=== PATIENT | female | born 2000 ===

== ENCOUNTER 2024-10-26 11:57 | Outpatient (CLI) | payer MEDICAID, SELFPAY ==
--- NOTE | 2024-10-26 | DI.US_ITS ---
Exam(s) US OB 1ST TRIMESTER EXAM: US OB 1ST TRIMESTER CLINICAL HISTORY: CARE Z34.90 DATING, ? SIZE LESS THAN DATES. COMPARISON: No exams were available for comparison TECHNIQUE: Transabdominal Transvaginal first trimester obstetrical ultrasound performed. FINDINGS: There is a gestational sac seen within the endometrial stripe, near the fundus. No free fluid identified. Pelvic Measurments Uterus: 4.2 x 9.41 cm x 6.07 cm cm Rt Ovary: Not visualized Lt Ovary: 3.2 x 2.2 x 1.4 cm Biometry CRL: 2 millimeters Yolk Sac: 3 millimeters Composite age 5 weeks 5 days EDC by US: 23 June 2025 Heart Rate: heart motion was visualized. Heart rate was not documented with Doppler due to small pole size. IMPRESSION: Single live intrauterine gestation measuring 5 weeks 5 days. DATA REPOSITORY:
--- OUTSIDE RECORDS SUMMARY | 2024-10-26 11:59 | XMS_ITS | Encounter Summary ---
Author Organization [facility] Address [address] [place] [address] Care Team Providers Care Conveyor Tender Concrete Mixing Plant Name Role Phone Unknown, Provider Primary Care Provider Hernesto ilgay Encounter Details Date Type Department Care Team (Late st Contact Info) Description 01/01/2022 Lab Requisition [facility] Pathology & Laboratory Medicine - [facility] [address] [place] [address] Outr Resulting Lab, Provider Social History Tobacco Use Types Packs/Day Years Used Date Smoking Tobacco: Never Assessed Interpersonal Safety Answer Date Record ed Physically Hurt Never 06/01/2020 Verbally Threaten Not on file 06/01/2020 Comments Unknown Sex and Gender Information Value Date Recorded Sex Assigned at Not on file Legal Sex Female 11:00 EDT Gender Identity Not on file Sexual Orientation Not on file documented as of this encounter Plan of Treatment Not on file documented as of this encounter Procedures Procedure Name Priority Date/Time Associated Diagnosis Comments CHLAMYDIA/N. GONORRHOEAE AMPLIFIED NUCLEIC ACID Routine 01/01/2022 17:00 EST documented in this encounter Results * CHLAMYDIA/N. GONORRHOEAE AMPLIFIED RNA (01/01/2022 17:00 EST) Neisseria gonorrhoeae Result Negative Negative 01/04/2022 14:13 EST [facility] Chlamydia trachomatis Result Negative Negative 01/04/2022 14:13 EST [facility] Swab ENTIRE VAGINA / Unknown 01/01/2022 17:00 EST 01/01/2022 22:36 EST us Provider Outr Resulting Lab MICROBIOLOGY - GENER AL ORDERABLES Final Result [facility] [address] [place] [address] documented in this encounter Visit Diagnoses Not on filedocumented in this encounter Care Teams Conveyor Tender Concrete Mixing Plant Relationship Specialty Start Date End Date Unknown, Provider, PCP - General 02/11/15 documented as of this encounter
--- OUTSIDE RECORDS SUMMARY | 2024-10-26 11:59 | XMS_ITS | Clinical Summary ---
Author Organization [facility] Address [address] [place] [address] Care Team Providers Care Flamer Sealer Name Role Phone Unknown, Provider Primary Care Provider Unava ilable Social History Tobacco Use Types Packs/Day Years Used Date Smoking Tobacco: Never Assessed Interpersonal Safety Answer Date Record ed Physically Hurt Never 06/01/2020 Verbally Threaten Not on file 06/01/2020 Comments Unknown Sex and Gender Information Value Date Recorded Sex Assigned at Not on file Legal Sex Female 11:00 EDT Gender Identity Not on file Sexual Orientation Not on file Plan of Treatment Health Maintenance Due Date Last Done Comments Hepatitis C Screen 1998 Hepatitis B Vaccine (1 of 3 - 19+ 3-dose series) 07/14 COVID-19 Vaccine ( season) 2024 [place] Care Teams Flamer Sealer Relationship Specialty Start Date End Date Unknown, Provider, PCP - General 02/11/15
--- OUTSIDE RECORDS SUMMARY | 2024-10-26 11:59 | XMS_ITS | Encounter Summary ---
Author Organization [facility] Address [address] [place] [address] Care Team Providers Care Inventory Control Planner Name Role Phone Unknown, Provider Primary Care Provider Unava ilable Encounter Details Date Type Department Care Team (Late st Contact Info) Description 11/26/2015 Historical Results Only [facility] Radiology Results [address] [place], [place] [id number] Roxanne Alexander, PA [address] [place] [address] Social History Tobacco Use Types Packs/Day Years Used Date Smoking Tobacco: Never Assessed Comments Unknown Sex and Gender Information Value Date Recorded Sex Assigned at Not on file Legal Sex Female 11:00 EDT Gender Identity Not on file Sexual Orientation Not on file documented as of this encounter Plan of Treatment Not on file documented as of this encounter Procedures Procedure Name Priority Date/Time Associated Diagnosis Comments US ABDOMEN LIMITED 11/26/2015 10 :57 EST documented in this encounter Results * US ABDOMEN LIMITED (11/26/2015 10:57 EST) Anatomical Region Laterality Modality Abdomen, Body Other 11/26/2015 10:5 7 EST Narrative 11/26/2015 11:01 EST ? EXAM: ULTRASOUND/RIGHT UPPER QUADRANT ? EX. D/ (0928) ? CLINICAL INFORMATION: ? R10.00 RUQ PAIN ? INDICATION: R10.00 RUQ PAIN RUQ ABDOMINAL PAIN ? TECHNIQUE: ??Sonographic examination of the right upper quadrant was ? performed. Color and spectral waveform Doppler imaging was utilized. ? COMPARISON: None ? FINDINGS: The IVC appears patent. The visualized portions of the ? pancreatic head are unremarkable. The right hepatic lobe measures ? 11cm in the craniocaudal dimension. No focal hepatic lesion is seen. ? The gallbladder wall is 2.1 mm in thickness. No gallstones are seen. ? No pericholecystic fluid is noted. The common bile duct measures ? 2.5mm in diameter. The right kidney is 10.2cm in length. No ? hydronephrosis is seen. No focal renal parenchymal abnormality is ? detected. ? IMPRESSION: ?No acute abnormality detected. ? REPORT SIGNED IN OTHER VENDOR SYSTEM 11/26/2015 ?Reported By: Marco Luciano MD ? CC: ? Transcribed Date/Time: 11/26/2015 (1101) ? Cargo Station Worker: ? Printed Date/Time: 04/11/2019 (1114) ? PAGE 1 ? Signed Report ? Procedure Note Marco Luciano MD - 09/05/2019 EXAM: ULTRASOUND/RIGHT UPPER QUADRANT EX. D/ (0928) CLINICAL INFORMATION: R10.00 RUQ PAIN INDICATION: R10.00 RUQ PAIN RUQ ABDOMINAL PAIN TECHNIQUE: Sonographic examination of the right upper quadrant was performed. Color and spectral waveform Doppler imaging wasutilized. COMPARISON: None FINDINGS: The IVC appears patent. The visualized portions of the pancreatic head are unremarkable. The right hepatic lobe measures 11cm in the craniocaudal dimension. No focal hepatic lesion isseen. The gallbladder wall is 2.1 mm in thickness. No gallstones areseen. No pericholecystic fluid is noted. The common bile duct measures 2.5mm in diameter. The right kidney is 10.2cm in length. No hydronephrosis is seen. No focal renal parenchymal abnormality is detected. IMPRESSION: No acute abnormality detected. REPORT SIGNED IN OTHER VENDOR SYSTEM 11/26/2015 Reported By: Marco Luciano MD CC: Transcribed Date/Time: 11/26/2015 (1048) Cargo Station Worker: [email or web address] Printed Date/Time: 04/11/2019 (5184) PAGE 1 Signed Report us Roxanne MANN IMG US ORDERABLES Final Result documented in this encounter Visit Diagnoses Not on filedocumented in this encounter Care Teams Inventory Control Planner Relationship Specialty Start Date End Date Unknown, Provider, PCP - General 02/11/15 documented as of this encounter
--- OUTSIDE RECORDS SUMMARY | 2024-10-26 11:59 | XMS_ITS | Encounter Summary ---
Author Organization [facility] Address [address] [place] [address] Care Team Providers Care Endless Steamer Tender Name Role Phone Unavailable Primary Care Provider Unavailabl e Encounter Details Date Type Department Care Team (Latest Contact Info) Description 02/04/2015 11:01 EDT - 02/04/2015 23:59 EDT Hospital Encounter [facility] [address] [place] [address] Unknown, Provider, MD Discharge Disposition: Home or Self Care Social History Tobacco Use Types Packs/Day Years Used Date Smoking Tobacco: Never Assessed Comments Unknown Sex and Gender Information Value Date Recorded Sex Assigned at Not on file Legal Sex Female 11:00 EDT Gender Identity Not on file Sexual Orientation Not on file documented as of this encounter Discharge Disposition Disposition Code Departure Means Destination Home or Self Snf documented in this encounter Plan of Treatment Not on file documented as of this encounter Visit Diagnoses Not on filedocumented in this encounter
--- OUTSIDE RECORDS SUMMARY | 2024-10-26 11:59 | XMS_ITS | Encounter Summary ---
Author Organization [facility] Address [address] [place] [address] Care Team Providers Care Shot Hole Shooter Name Role Phone Unknown, Provider Primary Care Provider Unava ilable Encounter Details Date Type Department Care Team (Late st Contact Info) Description 02/04/2015 Historical Results Only [facility] Radiology Results [address] [place] [address] Tiny Powers PA [address] [place], [place] Social History Tobacco Use Types Packs/Day Years [...] Procedure Name Priority Date/Time Associated Diagnosis Comments XR THORACIC SPINE 3 VIEWS 02/04/2015 15:57 EDT XR LUMBAR SPINE 2-3 VIEWS 02/04/2015 15:55 EDT documented in this encounter Results * XR THORACIC SPINE 3 VIEWS (02/04/2015 15:57 EDT) Anatomical Region Laterality Modality Spine Other 02/04/2015 15:5 7 EDT Narrative 02/04/2015 15:59 EDT ? EXAM: RADIOLOGY/THORACIC SPINE 3 VIEW ? EX. D/ (1446) ? CLINICAL INFORMATION: ? BACK PAIN ? INDICATION: Back pain. ? COMPARISON: None. ? TECHNIQUE: AP, lateral and lateral swimmer's views. ? FINDINGS: Intervertebral disc spaces and vertebral body heights are ? well-maintained. Bone density is normal. No fracture or subluxation ? is seen. ? IMPRESSION: ??Normal radiographic examination of the thoracic spine. ? REPORT SIGNED IN OTHER VENDOR SYSTEM 02/04/2015 ?Reported By: Young Bernal MD ? CC: ? Transcribed Date/Time: 02/04/2015 (2929) ? Strawhat Inspector And Packer: JAX ? Printed Date/Time: 04/03/2019 (7807) ? PAGE 1 ? Signed Report ? Procedure Note Young Bernal MD - 09/04/2019 EXAM: RADIOLOGY/THORACIC SPINE 3 VIEW EX. D/ (7279) CLINICAL INFORMATION: BACK PAIN INDICATION: Back pain. COMPARISON: None. TECHNIQUE: AP, lateral and lateral swimmer's views. FINDINGS: Intervertebral disc spaces and vertebral body heights are well-maintained. Bone density is normal. No fracture or subluxation is seen. IMPRESSION: Normal radiographic examination of the thoracic spine. REPORT SIGNED IN OTHER VENDOR SYSTEM 02/04/2015 Reported By: Young Bernal MD CC: Transcribed Date/Time: 02/04/2015 (4450) Strawhat Inspector And Packer: JAX Printed Date/Time: 04/03/2019 (0463) PAGE 1 Signed Report Tiny MANN IMG DIAGNOSTIC IMAGING ORDERA BLES Final Result * XR LUMBAR SPINE 2-3 VIEWS (02/04/2015 15:55 EDT) Anatomical Region Laterality Modality Other 02/04/2015 15:5 5 EDT Narrative 02/04/2015 15:58 EDT ? EXAM: RADIOLOGY/LUMBAR SPINE 2 OR 3 VIEWS EX. D/ (7266) ? CLINICAL INFORMATION: ? BACK PAIN ? INDICATION: Back pain. ? COMPARISON: None. ? TECHNIQUE: AP and lateral views. ? FINDINGS: Intervertebral disc spaces and vertebral heights are ? well-maintained. No fracture or subluxation is seen. There is a ? minimal curve of the lumbar spine, apex to the left. There is minimal ? increased density within the iliac aspects of both sacroiliac joints ? with questionable mild subchondral bone irregularity on the right. ? Findings may indicate an underlying sacroiliitis. Consider further ? assessment with MRI as clinically indicated. ? IMPRESSION: ??Possible mild sacroiliitis. Consider further assessment ? with MRI as clinically indicated. ? REPORT SIGNED IN OTHER VENDOR SYSTEM 02/04/2015 ?Reported By: Young Bernal MD ? CC: ? Transcribed Date/Time: 02/04/2015 (1808) ? Strawhat Inspector And Packer: JAX ? Printed Date/Time: 04/03/2019 (8202) ? PAGE 1 ? Signed Report ? Procedure Note Young Bernal MD - 09/04/2019 EXAM: RADIOLOGY/LUMBAR SPINE 2 OR 3 VIEWS EX. D/ (8675) CLINICAL INFORMATION: BACK PAIN INDICATION: Back pain. COMPARISON: None. TECHNIQUE: AP and lateral views. FINDINGS: Intervertebral disc spaces and vertebral heights are well-maintained. No fracture or subluxation is seen. There is a minimal curve of the lumbar spine, apex to the left. There isminimal increased density within the iliac aspects of both sacroiliacjoints with questionable mild subchondral bone irregularity on the right. Findings may indicate an underlying sacroiliitis. Consider further assessment with MRI as clinically indicated. IMPRESSION: Possible mild sacroiliitis. Consider furtherassessment with MRI as clinically indicated. REPORT SIGNED IN OTHER VENDOR SYSTEM 02/04/2015 Reported By: Young Bernal MD CC: Transcribed Date/Time: 02/04/2015 (1744) Strawhat Inspector And Packer: JAX Printed Date/Time: 04/03/2019 (4889) PAGE 1 Signed Report us Tiny MANN IMG DIAGNOSTIC IMAGING ORDERA BLES Final Result documented in this encounter Visit Diagnoses Not on filedocumented in this encounter Care Teams Shot Hole Shooter Relationship Specialty Start Date End Date Unknown, Provider, PCP - General 02/11/15 documented as of this encounter
--- OUTSIDE RECORDS SUMMARY | 2024-10-26 11:59 | XMS_ITS | Encounter Summary ---
Author Organization [facility] Address [address] [place] [address] Care Team Providers Care Customer Accounts Advisor Name Role Phone Unknown, Provider Primary Care Provider Hernesto ilgay Encounter Details Date Type Department Care Team (Late st Contact Info) Description 08/24/[address] [facility] Pathology & Laboratory Medicine - [facility] [address] [place] [address] Outr Resulting Lab, Provider Social History Tobacco [...] Procedure Name Priority Date/Time Associated Diagnosis Comments PROLACTIN Routine 08/24/2021 16:15 EDT ESTRADIOL, ADULTS Routine 08/24/2021 16: 15 EDT HEPATITIS B SURFACE ANTIGEN Routine 08/24/2021 16:15 EDT TESTOSTERONE, TOTAL AND FREE Routine 08/24/2021 16:15 EDT documented in this encounter Results * HEPATITIS B SURFACE ANTIGEN (08/24/2021 16:15 EDT) Hep B Surface Ag Negative Negative 08/25/2021 9:10 EDT [facility] Blood VENOUS BLOOD / Unknown 08/24/2021 16:15 EDT 08/24/2021 21:24 EDT Provider Outr Resulting Lab CHEMISTRY & BLOOD GA S ORDERABLES Final Result Performing Organization Address [facility] Co de Phone Number [facility] [address] [place] [address] * PROLACTIN (08/24/2021 16:15 EDT) Prolactin 10.5 See Table ng/mL 08/24/2021 22:30 EDT [facility] Comment: NOTE: Female Reference Ranges: PHYSIOLOGICAL STATUS ?EXPECTED RANGE ? Postmenopausal ?1.8 - 20.3 ng/mL ?9.7 - 208.5 ng/mL Non- ?2.8 - 29.2 ng/mL Reference Ranges for Prolactin in female patients <18 years old have not been established. Blood VENOUS BLOOD / Unknown 08/24/2021 16:15 EDT 08/24/2021 21:24 EDT us Provider Outr Resulting Lab CHEMISTRY & BLOOD GA S ORDERABLES Final Result Performing Organization Address [facility] Co de Phone Number [facility] [address] [place] [address] * TESTOSTERONE, TOTAL AND FREE (08/24/2021 16:15 EDT) Testosterone 30 See Note ng/dL 08/24/2021 22:30 EDT [facility] Comment: Adult Female Reference Ranges: Premenopausal: ?? 9 - 48 ng/dL Postmenopausal: ??<46 ng/dL The results of this assay can be falsley elevated due to the consumption of Biotin. Sex Hormone Bnd Glob 19.6 See Note nmol/L 08/24/2021 22:30 EDT [facility] Comment: NOTE: ---- Reference Ranges for Females Pre-Menopausal: ?>10.8 nmol/L Post-Menopausal: ?? 23.2 - 159.1 nmol/L Reference ranges for Sex Hormone Binding Globulin in female patients <21 years old have not been established. The results of this assay can be falsely lowered due to the consumption of Biotin. Free Testosterone 0.7 <=1.2 ng/dL 08/24/2021 22:30 EDT [facility] Blood VENOUS BLOOD / Unknown 08/24/2021 16:15 EDT 08/24/2021 21:24 EDT Narrative [facility] - 08/24/2021 22:30 EDT This test is not recommended in patients with plasma protein abnormalities. us Provider Outr Resulting Lab CHEMISTRY & BLOOD GA S ORDERABLES Final Result [facility] [address] [place] [address] * ESTRADIOL, ADULTS (08/24/2021 16:15 EDT) Estradiol 57 See Note pg/mL 08/24/2021 22:16 EDT [facility] Comment: NOTE: FEMALE REFERENCE RANGES: MENSTRUATING ? By cycle day relative to LH peak Follicular ?(-12 to -4 days) ??20-144 pg/mL Midcycle ?(-3 to +2 days) ?? 64-357 pg/mL Luteal ?(+4 t0 +12 days) ??56-214 pg/mL POSTMENOPAUSAL ?<32 pg/mL *Cross reactivity with Fulvestrant could lead to a falsely elevated estradiol result in patients treated with this drug. Blood VENOUS BLOOD / Unknown 08/24/2021 16:15 EDT 08/24/2021 21:24 EDT us Provider Outr Resulting Lab CHEMISTRY & BLOOD GA S ORDERABLES Final Result [facility] [address] [place] [address] documented in this encounter Visit Diagnoses Not on filedocumented in this encounter Care Teams Customer Accounts Advisor Relationship Specialty Start Date End Date Unknown, Provider, PCP - General 02/11/15 documented as of this encounter
--- OUTSIDE RECORDS SUMMARY | 2024-10-26 11:59 | XMS_ITS | Referral Summary ---
Author Organization [facility] Address [address] [place] [address] Care Team Providers Care Blanking Press Operator Name Role Phone Unknown, Provider Primary Care [...] Orientation Not on file Plan of Treatment Not on file [place] Care Teams Blanking Press Operator Relationship Specialty Start Date End Date Unknown, Provider, PCP - General 02/11/15
--- OUTSIDE RECORDS SUMMARY | 2024-10-26 11:59 | XMS_ITS | Encounter Summary ---
Author Organization [facility] Address [address] [place] [address] Care Team Providers Care Residential Property Tax Appraiser Name Role Phone Unknown, Provider MD Primary Care Provider Unava ilable Encounter Details Date Type Department Care Team (Latest Contact Info) Description 11/26/2015 13:14 EST - 11/26/2015 23:59 EST Hospital Encounter [facility] [address] [place] [address] Unknown, Provider, MD Discharge Disposition: Home or [...] Code Departure Means Destination Home or Self Senior Living documented in this encounter Plan of Treatment Not on file documented as of this encounter Visit Diagnoses Not on filedocumented in this encounter Care Teams Residential Property Tax Appraiser Relationship Specialty Start Date End Date Unknown, Provider, PCP - General 02/11/15 documented as of this encounter
--- OUTSIDE RECORDS SUMMARY | 2024-10-26 11:59 | XMS_ITS | Encounter Summary ---
Author Organization [facility] Address [address] [place] [address] Care Team Providers Care Multiple Cut Off Saw Operator Name Role Phone Unknown, Provider Primary Care Provider Unava ilable Encounter Details Date Type Department Care Team (Late st Contact Info) Description 07/08/2018 Historical Results Only [facility] Radiology Results [address] [place] [address] Lita Lynn PA-C [address] [place] [id number] Social History Tobacco Use Types Packs/Day Years [...] Name Priority Date/Time Associated Diagnosis Comments US OB FIRST TRIMESTER (LESS THAN 14 WEEKS) TRANSVAGINAL 07/08/2018 12:15 EDT documented in this encounter Results * US OB FIRST TRIMESTER (LESS THAN 14 WEEKS) TRANSVAGINAL (07/08/2018 12:15 EDT) Anatomical Region Laterality Modality Pelvis Other 07/08/2018 12:1 5 EDT Narrative 07/08/2018 12:15 EDT ? AN ADDENDUM IS INCLUDED ON THIS REPORT ? ADDENDUM ? THIS REPORT CONTAINS FINDINGS THAT MAY BE CRITICAL TO PATIENT ? CARE. ??The findings were verbally communicated via telephone ? conference with Lita Ngo at 12:16 PM EDT on 07/08/2018. ? The findings were acknowledged and understood. ? ADDENDUM SIGNED IN OTHER VENDOR SYSTEM 07/08/2018 ?Reported By: Woo Camacho MD ?Transcribed: 07/08/2018 (1216) HIS.[facility] ?REPORT ? EXAM: ULTRASOUND/TRANSVAGINAL - OB (LEVEL EX. D/ (1154) ? CLINICAL INFORMATION: ? , ?IUP- no IUP seen on bedside ultrasound ? EXAM: ? US , Transvaginal ? EXAM DATE/TIME: ? 07/08/2018 11:01 AM ? CLINICAL HISTORY: ? The patient is 17 years old and is female; Signs and symptoms; ? Lmp or gestational age (in weeks): Patient didn't know lmp. ? pole measures 9 weeks 0 days; Other: Pain; ; ? Additional info: , ? iup- no iup seen on bedside ? ultrasound Facility exam id and description: [id number] transvaginal ? - ob (level 1) ? TECHNIQUE: ? Real-time transvaginal obstetrical ultrasound of the maternal ? pelvis and a first trimester with image documentation. ?Transvaginal imaging was used for better evaluation of the ? fetus and adnexa. ? COMPARISON: ? No relevant prior studies available. ? FINDINGS: ? There is a single intrauterine gestational sac. ??A pole ? is present with mean crown-rump length of 2.31 cm, corresponding ? to an estimated gestational age of 9 weeks 0 days. ??No ? heart tones were identified. ??No subchorionic hemorrhage is ? demonstrated. ? The left ovary measures 2.7 x 3.6 x 1.6 cm and appears ? unremarkable. ??The right ovary measures 3.8 x 1.8 x 3.5 cm and ? contains a 1.9 x 1.3 x 2.1 cm complex corpus luteum. ? Very small free fluid is present in the pelvis. ? IMPRESSION: ? 1. ??Single intrauterine gestation with estimated gestational ? age of 9 weeks 0 days, based on crown-rump length. ??No ? PAGE 1 ? Signed Report ? (CONTINUED) ? AN ADDENDUM IS INCLUDED ON THIS REPORT ? heart tones identified. ??The findings are diagnostic of ? failure based on the [employer] Multispecialty Consensus ? Conference on Early First Trimester Diagnosis of Miscarriage and ? Exclusion of a Viable Intrauterine - July 2012. ? 2. ??2 x 1 cm complex right ovarian corpus luteum. ? 3. ??Very small free fluid in the pelvis. ? FINDINGS DIAGNOSTIC OF FAILURE ? CRL of 7mm or greater and no heartbeat ? MSD of 25 mm or greater and no embryo ? Absence of embryo with heartbeat two or more weeks after a ? scan that showed a gestational sac without a yolk sac. ? Absence of embryo with heartbeat 11 days or more after a ? scan that showed a gestational sac with a yolk sac. ? REPORT SIGNED IN OTHER VENDOR SYSTEM 07/08/2018 ?Reported By: Woo Camacho MD ? CC: ? Transcribed Date/Time: 07/08/2018 (1215) ? Therapy Site Coordinator: ? Printed Date/Time: 04/21/2019 (0879) ? PAGE 2 ? Signed Report ? Procedure Note Woo Camacho MD - 09/06/2019 AN ADDENDUM IS INCLUDED ON THIS REPORT ADDENDUM THIS REPORT CONTAINS FINDINGS THAT MAY BE CRITICAL TO PATIENT CARE. The findings were verbally communicated via telephone conference with Lita Ngo at 12:16 PM EDT on 07/08/2018. The findings were acknowledged and understood. ADDENDUM SIGNED IN OTHER VENDOR SYSTEM 07/08/2018 Reported By: Woo Camacho MD Transcribed: 07/08/2018 (1216) HIS.[facility]AD REPORT EXAM: ULTRASOUND/TRANSVAGINAL - OB (LEVEL EX. D/ (6994) CLINICAL INFORMATION: , ?IUP- no IUP seen on bedside ultrasound EXAM: US , Transvaginal EXAM DATE/TIME: 07/08/2018 11:01 AM CLINICAL HISTORY: The patient is 17 years old and is female; Signs and symptoms; Lmp or gestational age (in weeks): Patient didn't know lmp. pole measures 9 weeks 0 days; Other: Pain; ; Additional info: , ? iup- no iup seen on bedside ultrasound Facility exam id and description: Ob1tv transvaginal - ob (level 1) TECHNIQUE: Real-time transvaginal obstetrical ultrasound of the maternal pelvis and a first trimester with image documentation. Transvaginal imaging was used for better evaluation of the fetus and adnexa. COMPARISON: No relevant prior studies available. FINDINGS: There is a single intrauterine gestational sac. A pole is present with mean crown-rump length of 2.31 cm, corresponding to an estimated gestational age of 9 weeks 0 days. No heart tones were identified. No subchorionic hemorrhage is demonstrated. The left ovary measures 2.7 x 3.6 x 1.6 cm and appears unremarkable. The right ovary measures 3.8 x 1.8 x 3.5 cm and contains a 1.9 x 1.3 x 2.1 cm complex corpus luteum. Very small free fluid is present in the pelvis. IMPRESSION: 1. Single intrauterine gestation with estimated gestational age of 9 weeks 0 days, based on crown-rump length. No PAGE 1 Signed Report (CONTINUED) AN ADDENDUM IS INCLUDED ON THIS REPORT heart tones identified. The findings are diagnostic of failure based on the U Multispecialty Consensus Conference on Early First Trimester Diagnosis of Miscarriage and Exclusion of a Viable Intrauterine - July 2012. 2. 2 x 1 cm complex right ovarian corpus luteum. 3. Very small free fluid in the pelvis. FINDINGS DIAGNOSTIC OF FAILURE ? CRL of 7mm or greater and no heartbeat ? MSD of 25 mm or greater and no embryo ? Absence of embryo with heartbeat two or more weeks after a scan that showed a gestational sac without a yolk sac. ? Absence of embryo with heartbeat 11 days or more after a scan that showed a gestational sac with a yolk sac. REPORT SIGNED IN OTHER VENDOR SYSTEM 07/08/2018 Reported By: Woo Camacho MD CC: Transcribed Date/Time: 07/08/2018 (9556) Therapy Site Coordinator: Printed Date/Time: 04/21/2019 (3045) PAGE 2 Signed Report us Lita Lynn PA-C IMG US OB ORDERABLES Final R esult documented in this encounter Visit Diagnoses Not on filedocumented in this encounter Care Teams Multiple Cut Off Saw Operator Relationship Specialty Start Date End Date Unknown, Provider, PCP - General 02/11/15 documented as of this encounter
--- OUTSIDE RECORDS SUMMARY | 2024-10-26 11:59 | XMS_ITS | Encounter Summary ---
Author Organization [facility] Address [address] [place] [address] Care Team Providers Care Sap Treasury Consultant Name Role Phone Unknown, Provider MD Primary Care Provider Unava ilable Encounter Details Date Type Department Care Team (Latest Contact Info) Description 07/08/2018 0:12 EDT - 07/08/2018 23:59 EDT Hospital Encounter [facility] [address] [place] [address] Unknown, Provider, MD Discharge Disposition: Home or [...] Code Departure Means Destination Home or Self Custodial documented in this encounter Plan of Treatment Not on file documented as of this encounter Visit Diagnoses Not on filedocumented in this encounter Care Teams Sap Treasury Consultant Relationship Specialty Start Date End Date Unknown, Provider, PCP - General 02/11/15 documented as of this encounter
--- OUTSIDE RECORDS SUMMARY | 2024-10-26 11:59 | XMS_ITS | Encounter Summary ---
Author Organization [facility] Address [address] [place] [address] Care Team Providers Care Rail Transit Operator Name Role Phone Unknown, Provider Primary Care Provider Hernesto ilgay Encounter Details Date Type Department Care Team (Late st Contact Info) Description 08/25/2021 Lab Requisition [facility] Pathology & Laboratory Medicine - [facility] [address] [place] [address] Outr Resulting Lab, Provider Social History Tobacco [...] Procedure Name Priority Date/Time Associated Diagnosis Comments FSH Routine 08/24/2021 16:15 EDT documented in this encounter Results * FSH (08/24/2021 16:15 EDT) FSH 5.4 See Note mIU/mL 08/25/2021 22:33 EDT [facility] Blood VENOUS BLOOD / Unknown 08/24/2021 16:15 EDT 08/25/2021 21:45 EDT Narrative [facility] - 08/25/2021 22:33 EDT NOTE: Female FSH Reference Ranges (>= 13 Menstruating): PHYSIOLOGICAL STATUS ? REFERENCE RANGE ? Follicular (-12 to -4 days): ?? 2.5 - 10.2 mIU/mL Midcycle (-3 to +2 days): ?3.4 - 33.4 mIU/mL Luteal (+4 to +12 days): ? 1.5 - 9.1 mIU/mL Postmenopausal: ?23.0 - 116.3 mIU/mL Reference Ranges for female patients <13 years old have not been established. us Provider Outr Resulting Lab CHEMISTRY & BLOOD GA S ORDERABLES Final Result [facility] [address] [place] [address] documented in this encounter Visit Diagnoses Not on filedocumented in this encounter Care Teams Rail Transit Operator Relationship Specialty Start Date End Date Unknown, Provider, PCP - General 02/11/15 documented as of this encounter
--- OUTSIDE RECORDS SUMMARY | 2024-10-26 11:59 | XMS_ITS | Encounter Summary ---
Author Organization [facility] Address [address] [place] [address] Care Team Providers Care Services Engineer Name Role Phone Unknown, Provider Primary Care Provider Unava ilable Encounter Details Date Type Department Care Team (Late st Contact Info) Description 01/08/2022 Lab Requisition [facility] Pathology & Laboratory Medicine - [facility] [address] [place] [address] Outr Resulting Lab, Provider Social History Tobacco [...] Procedure Name Priority Date/Time Associated Diagnosis Comments RUBELLA IGG ANTIBODY Routine 01/08/2022 12:00 EST HEPATITIS B SURFACE ANTIGEN Routine 01/08/2022 12:00 EST documented in this encounter Results * RUBELLA IGG ANTIBODY (01/08/2022 12:00 EST) Rubella IgG Ab Positive See Note 01/11/2022 10:51 EDT [facility] Comment:Positive for IgG ant ibodies to Rubella virus. Blood VENOUS BLOOD / Unknown 01/08/2022 12:00 EST 01/08/2022 21:15 EST us Provider Outr Resulting Lab CHEMISTRY & BLOOD GA S ORDERABLES Final Result Performing Organization Address City/[facility]/ZIP Co de Phone Number [facility] [address] [place] [address] * HEPATITIS B SURFACE ANTIGEN (01/08/2022 12:00 EST) Hep B Surface Ag Negative Negative 01/11/2022 11:15 EDT [facility] Blood VENOUS BLOOD / Unknown 01/08/2022 12:00 EST 01/08/2022 21:15 EST us Provider Outr Resulting Lab CHEMISTRY & BLOOD GA S ORDERABLES Final Result Performing Organization Address [facility] Co de Phone Number [facility] [address] [place] [address] documented in this encounter Visit Diagnoses Not on filedocumented in this encounter Care Teams Services Engineer Relationship Specialty Start Date End Date Unknown, Provider, PCP - General 02/11/15 documented as of this encounter
== END 2024-10-26 12:17 ==
DX: Z34.81 Encounter for supervision of other normal pregnancy, first trimester (principal); Z3A.01 Less than 8 weeks gestation of pregnancy
CPT/HCPCS: 76801

== ENCOUNTER 2024-11-09 00:22 | Outpatient (CLI) | payer MEDICAID, SELFPAY ==
--- NOTE | 2024-11-09 | DI.US_ITS ---
Exam(s) US OB 1ST TRIMESTER EXAM: US OB 1ST TRIMESTER CLINICAL HISTORY: CONFIRM DATING, VIABILITY,Z34.91. COMPARISON: US US OB 1ST TRIMESTER from 10/26/2024 TECHNIQUE: Transabdominal Transvaginal first trimester obstetrical ultrasound performed. FINDINGS: Sonographic images demonstrate a single intrauterine gestation. A yolk sac and pole are seen. Sonographically assessed gestational age based upon crown-rump length of 1.5 cm is: 7 weeks 6 days Estimated date of delivery based on this ultrasound is: 06/22/2025 Estimated date of delivery based upon LMP: 06/24/2025 heart rate motion is Dopplered at: 159 bpm. No free fluid identified. The right ovary appears grossly unremarkable. There is a 2.5 x 2.1 x 2.2 cm cyst on the right ovary. The left ovary was not visualized on this examination. Pelvic Measurments Uterus: 11.0 long by 5.5 AP by 6.2 transverse cm Rt Ovary: 4.7 x 3.9 x 2.6 cm IMPRESSION: There is a single living intrauterine gestation with estimated gestational age of 7 weeks 6 days. DATA REPOSITORY:
== END 2024-11-09 00:42 ==
PROVIDERS: PCP Advanced Practice Midwife; Visit Provider Radiology Diagnostic Ultrasound
DX: Z34.91 Encounter for supervision of normal pregnancy, unspecified, first trimester (principal); Z3A.01 Less than 8 weeks gestation of pregnancy
CPT/HCPCS: 76801